=== PATIENT | male | born 1950 | race Caucasian/White ===

== ENCOUNTER 2021-04-16 04:20 | Inpatient (IN) ==
[2021-04-16] MEDS ORDERED: Naloxone 0.4 MG/ML INJ IVP PRN (08:12)
[2021-04-16] MEDS ORDERED: Acetaminophen 325 MG TABLET PO PRN (08:12)
[2021-04-16] MEDS ORDERED: Ondansetron 4 MG/2 ML VIAL IVP PRN (08:12)
[2021-04-16] MEDS ORDERED: *HR* Heparin 5,000 UNIT/ML VIAL IVP PRN ×2 (08:12)
[2021-04-16] MEDS ORDERED: *HR* Heparin 5,000 UNIT/ML VIAL IVP ONE (08:12)
[2021-04-16] MEDS ORDERED: Perflutren Lipid Microsphere 1.3 ML in 0.9 % Sodium Chloride 8.7 ML IVP PRN (08:19)
[2021-04-16 08:56] LABS: Hematocrit 35.3 % (37.5-50.1); Hemoglobin 10.6 g/dL (12.9-16.9); Mean Corpuscular Hemoglobin 29.6 pg (28.0-33.3); Mean Corpuscular Volume 98.6 fL (83.0-100.0); Mean Platelet Volume 10.8 fL (9.4-12.4); Platelet Count 245 K/mcL (140-400); Red Blood Count 3.58 M/mcL (4.19-5.50); Red Cell Distribution Width 14.9 % (11.5-14.5); White Blood Count 13.1 K/mcL (4.3-11.1)
[2021-04-16 09:07] LABS: Heparin anti-factor XA UFH 0.04 IU/mL (0.30-0.70); INR 1.2; Prothrombin Time 13.5 Seconds (9.4-12.1)
[2021-04-16 09:14] LABS: Chol/HDL Ratio 3.6 (0-4.9); Phosphorous 3.5 mg/dL (2.7-4.5)
[2021-04-16 09:25] LABS: Albumin 3.6 g/dL (3.5-5.7); Albumin/Globulin Ratio 1.3 (1.1-2.2); Bilirubin,Total 0.4 mg/dL (0.3-1.0); Calcium 8.5 mg/dL (8.6-10.3); Globulin 2.7 g/dL (2.4-3.5); Magnesium 1.9 mg/dL (1.6-2.6); Potassium 5.2 mEq/L (3.5-5.1); Total Protein 6.3 g/dL (6.4-8.9); Troponin I 0.37 ng/mL (< 0.04)
[2021-04-16] MEDS ORDERED: Furosemide 40 MG/4 ML VIAL IVP SCH (09:45)
[2021-04-16] MEDS: Aspirin Enteric Coated 81 MG Tablet PO SCH (10:52)
[2021-04-16] MEDS: Heparin 25,000UNIT/250ML 1/2NS 25,000 UNIT/250 ML IV.SOLN IVC SCH (12:33)
[2021-04-16] MEDS ORDERED: Metoprolol XL (24 HR) Succ 25 MG TAB.ER.24H PO SCH (15:15)
[2021-04-16] MEDS: Furosemide 40 MG/4 ML VIAL IVP SCH (17:22)
[2021-04-16] MEDS: Melatonin 3 MG TABLET PO PRN (21:13)
[2021-04-16] MEDS: Gabapentin 300 MG CAPSULE PO SCH (21:13)
[2021-04-16] MEDS: Metoprolol XL (24 HR) Succ 25 MG TAB.ER.24H PO SCH (21:13)
[2021-04-16] MEDS ORDERED: Dextrose Gel 15 GM/37.5 ML TUBE PO PRN ×2 (22:18)
[2021-04-16] MEDS ORDERED: *HR* Dextrose 50 % in Water (Vial) 50 ML VIAL IVP PRN (22:18)
[2021-04-16] MEDS ORDERED: D5% in Water 1,000 ML IVC PRN (22:18)
[2021-04-17] MEDS: Insulin LISPRO 300 UNITS/3 ML VIAL SUBQ SCH ×2 (00:53→07:05)
[2021-04-17 06:08] LABS: Hematocrit 30.9 % (37.5-50.1); Hemoglobin 9.6 g/dL (12.9-16.9); Mean Corpuscular HGB Conc 31.1 g/dL (31.6-35.5); Mean Corpuscular Hemoglobin 29.9 pg (28.0-33.3); Mean Corpuscular Volume 96.3 fL (83.0-100.0); Mean Platelet Volume 10.6 fL (9.4-12.4); Platelet Count 246 K/mcL (140-400); Red Blood Count 3.21 M/mcL (4.19-5.50); Red Cell Distribution Width 14.6 % (11.5-14.5); White Blood Count 10.6 K/mcL (4.3-11.1)
[2021-04-17 06:28] LABS: Calcium 8.5 mg/dL (8.6-10.3); Potassium 4.6 mEq/L (3.5-5.1)
[2021-04-17] MEDS: Heparin 25,000UNIT/250ML 1/2NS 25,000 UNIT/250 ML IV.SOLN IVC SCH ×2 (08:12→22:56)
[2021-04-17] MEDS: Furosemide 40 MG/4 ML VIAL IVP SCH ×2 (08:15→17:26)
[2021-04-17] MEDS: Metoprolol XL (24 HR) Succ 25 MG TAB.ER.24H PO SCH ×2 (08:15→21:28)
[2021-04-17] MEDS: Gabapentin 300 MG CAPSULE PO SCH ×3 (08:15→21:28)
[2021-04-17] MEDS: Aspirin Enteric Coated 81 MG Tablet PO SCH (08:15)
[2021-04-17] MEDS ORDERED: Insulin LISPRO 300 UNITS/3 ML VIAL SUBQ SCH ×2 (16:30→21:00)
[2021-04-18 03:53] LABS: Hematocrit 31.1 % (37.5-50.1); Hemoglobin 9.7 g/dL (12.9-16.9); Mean Corpuscular HGB Conc 31.2 g/dL (31.6-35.5); Mean Corpuscular Hemoglobin 29.6 pg (28.0-33.3); Mean Corpuscular Volume 94.8 fL (83.0-100.0); Mean Platelet Volume 10.3 fL (9.4-12.4); Platelet Count 266 K/mcL (140-400); Red Blood Count 3.28 M/mcL (4.19-5.50); Red Cell Distribution Width 14.6 % (11.5-14.5); White Blood Count 9.9 K/mcL (4.3-11.1)
[2021-04-18 04:10] LABS: BUN/Creatinine Ratio 22 (6-26); Blood Urea Nitrogen 25 mg/dL (8-23); Calcium 8.5 mg/dL (8.6-10.3); Carbon Dioxide 25 mEq/L (23-29); Chloride 105 mEq/L (98-107); Glucose 227 mg/dL (70-105); Osmolality,Calculated 298 (280-300); Potassium 3.8 mEq/L (3.5-5.1); Sodium 138 mEq/L (136-145); eGFR For African Americans > 60 (> 60); eGFR For Non-African Americans > 60 (> 60)
[2021-04-18] MEDS: Metoprolol XL (24 HR) Succ 25 MG TAB.ER.24H PO SCH ×2 (09:16→23:41)
[2021-04-18] MEDS: Aspirin Enteric Coated 81 MG Tablet PO SCH (09:16)
[2021-04-18] MEDS: Gabapentin 300 MG CAPSULE PO SCH ×3 (09:16→23:41)
[2021-04-18] MEDS: Furosemide 40 MG/4 ML VIAL IVP SCH ×2 (09:17→16:39)
[2021-04-18] MEDS: lisinopriL 5 MG TABLET PO SCH (12:47)
[2021-04-18] MEDS: Insulin LISPRO 300 UNITS/3 ML VIAL SUBQ SCH ×2 (12:48→16:39)
[2021-04-18] MEDS: Heparin 25,000UNIT/250ML 1/2NS 25,000 UNIT/250 ML IV.SOLN IVC SCH (17:11)
[2021-04-18] MEDS ORDERED: Insulin LISPRO 300 UNITS/3 ML VIAL SUBQ SCH (21:00)
[2021-04-19 02:33] LABS: Hematocrit 31.4 % (37.5-50.1); Hemoglobin 9.9 g/dL (12.9-16.9); Mean Corpuscular HGB Conc 31.5 g/dL (31.6-35.5); Mean Corpuscular Hemoglobin 29.6 pg (28.0-33.3); Mean Platelet Volume 10.2 fL (9.4-12.4); Platelet Count 303 K/mcL (140-400); Red Blood Count 3.34 M/mcL (4.19-5.50); Red Cell Distribution Width 14.6 % (11.5-14.5)
[2021-04-19 02:49] LABS: BUN/Creatinine Ratio 25 (6-26); Blood Urea Nitrogen 29 mg/dL (8-23); Calcium 8.3 mg/dL (8.6-10.3); Carbon Dioxide 25 mEq/L (23-29); Chloride 105 mEq/L (98-107); Glucose 250 mg/dL (70-105); Osmolality,Calculated 302 (280-300); Potassium 3.7 mEq/L (3.5-5.1); Sodium 139 mEq/L (136-145); eGFR For African Americans > 60 (> 60); eGFR For Non-African Americans > 60 (> 60)
[2021-04-19] MEDS: Heparin 25,000UNIT/250ML 1/2NS 25,000 UNIT/250 ML IV.SOLN IVC SCH ×2 (04:28→16:47)
[2021-04-19] MEDS: Furosemide 40 MG/4 ML VIAL IVP SCH ×2 (07:52→15:54)
[2021-04-19] MEDS: Gabapentin 300 MG CAPSULE PO SCH ×3 (07:53→21:47)
[2021-04-19] MEDS: lisinopriL 5 MG TABLET PO SCH (07:53)
[2021-04-19] MEDS: Metoprolol XL (24 HR) Succ 25 MG TAB.ER.24H PO SCH ×2 (07:53→21:46)
[2021-04-19] MEDS: Aspirin Enteric Coated 81 MG Tablet PO SCH (07:53)
[2021-04-19] MEDS: Insulin LISPRO 300 UNITS/3 ML VIAL SUBQ SCH ×4 (07:54→21:58)
[2021-04-19] MEDS ORDERED: Calcium Gluconate 1gm/50mL 1 GM/50 ML BAG IVPB ONE (08:04)
[2021-04-19] MEDS: Sulfamethoxazole/Trimeth DS 1 EACH TABLET PO SCH ×2 (15:55→21:47)
[2021-04-19] MEDS: Melatonin 3 MG TABLET PO PRN (21:46)
[2021-04-20 03:10] LABS: Hematocrit 32.3 % (37.5-50.1); Hemoglobin 10.3 g/dL (12.9-16.9); Mean Corpuscular HGB Conc 31.9 g/dL (31.6-35.5); Mean Corpuscular Hemoglobin 30.1 pg (28.0-33.3); Mean Corpuscular Volume 94.4 fL (83.0-100.0); Mean Platelet Volume 10.1 fL (9.4-12.4); Platelet Count 322 K/mcL (140-400); Red Blood Count 3.42 M/mcL (4.19-5.50); Red Cell Distribution Width 14.3 % (11.5-14.5); White Blood Count 9.9 K/mcL (4.3-11.1)
[2021-04-20 03:25] LABS: BUN/Creatinine Ratio 26 (6-26); Blood Urea Nitrogen 32 mg/dL (8-23); Calcium 8.4 mg/dL (8.6-10.3); Carbon Dioxide 23 mEq/L (23-29); Chloride 104 mEq/L (98-107); Glucose 257 mg/dL (70-105); Osmolality,Calculated 298 (280-300); Potassium 3.7 mEq/L (3.5-5.1); Sodium 136 mEq/L (136-145); eGFR For African Americans > 60 (> 60); eGFR For Non-African Americans 59 (> 60)
[2021-04-20] MEDS ORDERED: Saline Nasal Spray 44 ML BOTTLE NS PRN (03:56)
[2021-04-20] MEDS: Heparin 25,000UNIT/250ML 1/2NS 25,000 UNIT/250 ML IV.SOLN IVC SCH (07:32)
[2021-04-20] MEDS: Furosemide 40 MG/4 ML VIAL IVP SCH ×2 (08:42→16:56)
[2021-04-20] MEDS: lisinopriL 5 MG TABLET PO SCH (08:42)
[2021-04-20] MEDS: Aspirin Enteric Coated 81 MG Tablet PO SCH (08:42)
[2021-04-20] MEDS: Gabapentin 300 MG CAPSULE PO SCH ×3 (08:42→21:34)
[2021-04-20] MEDS: Sulfamethoxazole/Trimeth DS 1 EACH TABLET PO SCH ×2 (08:42→21:37)
[2021-04-20] MEDS: Insulin LISPRO 300 UNITS/3 ML VIAL SUBQ SCH ×4 (08:43→21:45)
[2021-04-20] MEDS: Metoprolol XL (24 HR) Succ 25 MG TAB.ER.24H PO SCH ×2 (08:51→21:38)
[2021-04-20] MEDS: Melatonin 3 MG TABLET PO PRN (21:34)
[2021-04-20] MEDS: Insulin DETEMIR 100 UNIT/ML X5UNITS SUBQ SCH (21:45)
[2021-04-21] MEDS: Heparin 25,000UNIT/250ML 1/2NS 25,000 UNIT/250 ML IV.SOLN IVC SCH ×2 (04:52→13:36)
[2021-04-21 07:51] LABS: Basophils # 0.1 K/mcL (0.0-0.2); Eosinophils # 0.6 K/mcL (0.0-0.6); Eosinophils % 5.4 %; Hematocrit 34.7 % (37.5-50.1); Hemoglobin 10.5 g/dL (12.9-16.9); Immature Granulocytes % 0.7 % (0-4); Lymphocytes # 1.7 K/mcL (0.6-4.6); Lymphocytes % 15.6 %; Mean Corpuscular HGB Conc 30.3 g/dL (31.6-35.5); Mean Corpuscular Hemoglobin 28.8 pg (28.0-33.3); Mean Corpuscular Volume 95.1 fL (83.0-100.0); Mean Platelet Volume 10.1 fL (9.4-12.4); Monocytes % 9.3 %; Neutrophils # 7.4 K/mcL (1.6-8.9); Platelet Count 349 K/mcL (140-400); Red Blood Count 3.65 M/mcL (4.19-5.50); Red Cell Distribution Width 14.5 % (11.5-14.5); White Blood Count 10.9 K/mcL (4.3-11.1)
[2021-04-21] MEDS: Furosemide 40 MG/4 ML VIAL IVP SCH (08:08)
[2021-04-21] MEDS: lisinopriL 5 MG TABLET PO SCH (08:09)
[2021-04-21] MEDS: Aspirin Enteric Coated 81 MG Tablet PO SCH (08:09)
[2021-04-21] MEDS: Gabapentin 300 MG CAPSULE PO SCH ×2 (08:09→16:26)
[2021-04-21] MEDS: Metoprolol XL (24 HR) Succ 25 MG TAB.ER.24H PO SCH (08:10)
[2021-04-21] MEDS: Sulfamethoxazole/Trimeth DS 1 EACH TABLET PO SCH (08:10)
[2021-04-21] MEDS: Insulin LISPRO 300 UNITS/3 ML VIAL SUBQ SCH ×3 (08:11→16:27)
[2021-04-21 08:17] LABS: BUN/Creatinine Ratio 23 (6-26); Blood Urea Nitrogen 29 mg/dL (8-23); Calcium 8.5 mg/dL (8.6-10.3); Carbon Dioxide 25 mEq/L (23-29); Chloride 104 mEq/L (98-107); Glucose 266 mg/dL (70-105); Osmolality,Calculated 301 (280-300); Potassium 3.9 mEq/L (3.5-5.1); Sodium 138 mEq/L (136-145); eGFR For African Americans > 60 (> 60); eGFR For Non-African Americans 55 (> 60)
[2021-04-21] MEDS: Insulin DETEMIR 100 UNIT/ML X5UNITS SUBQ SCH (08:48)
[2021-04-21] MEDS ORDERED: Spironolactone 25 MG TABLET PO SCH (10:00)
[2021-04-21 12:33] VITALS: BP 93/54
[2021-04-21 16:00] VITALS: PULSE 67; TEMP 97.9; O2SAT 94
[2021-04-21] MEDS ORDERED: Insulin DETEMIR 100 UNIT/ML X5UNITS SUBQ SCH (21:00)
[2021-04-22] MEDS ORDERED: lisinopriL 5 MG TABLET PO SCH (09:00)
== END 2021-04-21 17:13 | disposition short-term general hospital (02) | DRG 280 ==
LOC: CDU → SUATTDRO 06:34 → 2NENU 04-17 17:46
PROVIDERS: ADMIT Internal Medicine; ATTEND Internal Medicine